=== PATIENT | male | born 1980 | race Caucasian/White ===

== ENCOUNTER 2017-03-26 20:41 | Emergency (ER) | payer SELFPAY ==
--- NOTE | 2017-03-26 20:54 | PDOC ---
Rapid Medical Evaluation Time Seen by Provider: 03/26/17 20:52 Medical Evaluation: 03/26/17 20:52 I have performed a brief in-person evaluation of this patient. The patient presents with a chief complaint of: flank pain, hematuria Pertinent physical exam findings: uncomfortable, no other distress I have ordered the following: cbc, cmp, ua The patient will proceed to the ED for further evaluation. Discharge Disposition - Diagnosis Abdominal pain Qualifiers: Abdominal location: unspecified location Qualified Code(s): R10.9 - Unspecified abdominal pain - Referrals - Patient Instructions - Post Discharge Activity
[2017-03-26 21:01] VITALS: BP 126/85; PULSE 72; TEMP 97.7; BMI 30.7
[2017-03-26 21:11] LABS: BASOPHIL 0.9 % (0-2.0); EOSINOPHIL 1.3 % (0-4.5); MCH 28.7 pg (25.7-33.7); MEAN PLT VOLUME 6.6 fl (7.5-11.1); NEUTROPHILS 59.6 % (42.8-82.8); PLATELET COUNT 279 K/MM3 (134-434); RDW 13.2 % (11.9-15.9); WHITE BLOOD COUNT 9.2 K/mm3 (4.0-10.0)
[2017-03-26 21:40] LABS: ALBUMIN 3.8 g/dl (3.4-5.0); ALK PHOS 108 U/L (45-117); ANION GAP 9 (8-16); BILIRUBIN,TOTAL 0.5 mg/dL (0.2-1.0); CALCIUM 8.7 mg/dL (8.5-10.1); CO2 27 mmol/L (21-32); CREATININE 0.7 mg/dL (0.7-1.3); GLUCOSE,RANDOM 126 mg/dL (74-106); SGPT/ALT 77 U/L (12-78); TOT PROT 7.4 g/dl (6.4-8.2)
[2017-03-26 21:41] LABS: SGOT/AST 32 U/L (15-37)
--- NOTE | 2017-03-26 23:17 | PDOC ---
History of Present Illness - General History Source: Patient Exam Limitations: No Limitations - History of Present Illness Initial Comments: 03/26/17 23:19 37 year old male, with significant past medical history of gastritis, who presents to the emergency room complaining of intermittent left sided flank pain that radiates to the left groin and hematuria x4 days that progressively worsened and became constant today. The patient explains that the pain started on Sunday, 4 days ago, but subsided after taking tylenol. The pain returned today and is deep, sharp, and 10/10 in severity and is no longer relieved by tylenol. The patient reports associated chills, nausea, nonbloody, nonbilious vomiting and lightheadedness. Denies dysuria, urinary frequency. Denies diarrhea , constipation. Denies recent travel. Denies fever. Allergies:NKA The patient does not have a PCP. <Lidia West - Last Filed: 03/26/17 23:19> <Sommer Eaton - Last Filed: 03/27/17 00:02> - General Chief Complaint: Pain Stated Complaint: PAIN Time Seen by Provider: 03/26/17 20:52 Past History <Lidia West - Last Filed: 03/26/17 23:19> - Past Medical History COPD: No - Immunization History Immunization Up to Date: Yes - Suicide/Smoking/Psychosocial Hx Smoking History: Never smoked Have you smoked in the past 12 months: No Information on smoking cessation initiated: No Hx Alcohol Use: No Drug/Substance Use Hx: No <Sommer Eaton - Last Filed: 03/27/17 00:02> - Past Medical History Allergies/Adverse Reactions: Allergies Allergy/AdvReac Type Severity Reaction Status Date / Time No Known Allergies Allergy Verified 03/26/17 22:22 Home Medications: Ambulatory Orders Ketorolac Tromethamine [Toradol] 10 mg PO Q6H PRN #12 tablet 03/26/17 Tamsulosin HCl [Flomax] 0.4 mg PO DAILY #7 capsule 03/26/17 Review of Systems - Review of Systems Able to Perform ROS?: Yes Comments:: 03/26/17 23:19 CONSTITUTIONAL: Absent: fever, no chills, no fatigue EYES: Absent: visual changes ENT: Absent: ear pain, no sore throat CARDIOVASCULAR: Absent: chest pain, no palpitations RESPIRATORY: Absent: cough, no SOB GI: Present: nausea, vomiting. Absent: no constipation, no diarrhea GENITOURINARY: Present: left flank pain that radiates to the left groin, hematuria. Absent: dysuria, no frequency MUSCULOSKELETAL: Absent: no arthralgia, no myalgia SKIN: Absent: rash NEURO: Absent: headache <JennaLidia - Last Filed: 03/26/17 23:19> *Physical Exam - Vital Signs Last Vital Signs Temp Pulse Resp BP Pulse Ox 97.7 F 72 14 126/85 100 03/26/17 20:59 03/26/17 20:59 03/26/17 20:59 03/26/17 20:59 03/26/17 20:59 - Physical Exam Comments: 03/26/17 23:19 GENERAL: Well-appearing, well-nourished. No apparent distress. HEENT: Normocephalic, atraumatic. PERRL, EOM intact. CARDIOVASCULAR: Normal S1, S2. Regular rate and rhythm. PULMONARY: Clear to auscultation bilaterally. ABDOMEN: Soft, non-distended, non-tender. EXTREMITIES: Normal ROM in all four extremities. No gross deformities. BACK: +left CVA tenderness SKIN: Warm, dry. No rash <Lidia West - Last Filed: 03/26/17 23:19> - Vital Signs Last Vital Signs Temp Pulse Resp BP Pulse Ox 97.7 F 72 14 126/85 100 03/26/17 20:59 03/26/17 20:59 03/26/17 20:59 03/26/17 20:59 03/26/17 20:59 <Sommer Eaton - Last Filed: 03/27/17 00:02> ED Treatment Course - LABORATORY CBC & Chemistry Diagram: 03/26/17 21:00 03/26/17 21:00 - ADDITIONAL ORDERS Additional order review: Laboratory Results 03/26/17 21:00 Sodium 139 Potassium 3.8 Chloride 103 Carbon Dioxide 27 Anion Gap 9 BUN 14 Creatinine 0.7 Creat Clearance w eGFR > 60 Random Glucose 126 H Calcium 8.7 Total Bilirubin 0.5 AST 32 ALT 77 Alkaline Phosphatase 108 Total Protein 7.4 Albumin 3.8 03/26/17 21:00 RBC 5.00 MCV 87.0 MCHC 33.0 RDW 13.2 MPV 6.6 L Neutrophils % 59.6 Lymphocytes % 29.4 Monocytes % 8.8 Eosinophils % 1.3 Basophils % 0.9 <Lidia West - Last Filed: 03/26/17 23:19> - LABORATORY CBC & Chemistry Diagram: 03/26/17 21:00 03/26/17 21:00 - ADDITIONAL ORDERS Additional order review: Laboratory Results 03/26/17 21:00 Sodium 139 Potassium 3.8 Chloride 103 Carbon Dioxide 27 Anion Gap 9 BUN 14 Creatinine 0.7 Creat Clearance w eGFR > 60 Random Glucose 126 H Calcium 8.7 Total Bilirubin 0.5 AST 32 ALT 77 Alkaline Phosphatase 108 Total Protein 7.4 Albumin 3.8 03/26/17 21:00 RBC 5.00 MCV 87.0 MCHC 33.0 RDW 13.2 MPV 6.6 L Neutrophils % 59.6 Lymphocytes % 29.4 Monocytes % 8.8 Eosinophils % 1.3 Basophils % 0.9 - RADIOLOGY Radiology Studies Ordered: Category Date Time Status SPIRAL- RENAL-STONE CT [CT] Stat CT Scan 03/26/17 21:51 Completed <Sommer Eaton - Last Filed: 03/27/17 00:02> *DC/Admit/Observation/Transfer - Attestations Scribe Attestion: 03/26/17 23:19 Documentation prepared by BLAIR Santana, acting as medical facilities section director for Sommer Eaton MD <Lidia West - Last Filed: 03/26/17 23:19> <Sommer Eaton - Last Filed: 03/27/17 00:02> Diagnosis at time of Disposition: Kidney calculi - Discharge Dispostion Condition at time of disposition: Stable - Prescriptions Prescriptions: Ketorolac Tromethamine [Toradol] 10 mg PO Q6H PRN #12 tablet PRN Reason: Pain Level 6-10 Tamsulosin HCl [Flomax] 0.4 mg PO DAILY #7 capsule - Referrals Referrals: Angel Helm MD [Staff Physician] - - Patient Instructions Printed Discharge Instructions: DI for Kidney Stones Additional Instructions: 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
[2017-03-26] MEDS ORDERED: TAMSULOSIN HCL 0.4 MG CAP.ER.24H (FP) PO ONE (23:21)
[2017-03-26] MEDS ORDERED: KETOROLAC TROMETHAMINE 60 MG/2 ML VIAL IM ONE (23:22)
[2017-03-26] MEDS ORDERED: TAMSULOSIN HCL 0.4 MG CAP.ER.24H (FP) ONE (23:37)
[2017-03-26] MEDS ORDERED: KETOROLAC TROMETHAMINE 60 MG/2 ML VIAL ONE (23:37)
[2017-03-27 00:07] LABS: URINE APPEARANCE CLEAR; URINE BILIRUBIN NEGATIVE (NEGATIVE); URINE BLOOD 3+ (NEGATIVE); URINE COLOR LTYELLOW; URINE GLUCOSE (UA) NEGATIVE (NEGATIVE); URINE KETONE NEGATIVE (NEGATIVE); URINE NITRITE NEGATIVE (NEGATIVE); URINE PROTEIN NEGATIVE (NEGATIVE); URINE UROBILINOGEN NEGATIVE mg/dL (0.2-1.0)
--- NOTE | 2017-03-27 00:32 | PDOC ---
*Physical Exam - Vital Signs Last Vital Signs Temp Pulse Resp BP Pulse Ox 97.7 F 72 14 126/85 100 03/26/17 20:59 03/26/17 20:59 03/26/17 20:59 03/26/17 20:59 03/26/17 20:59 ED Treatment Course - LABORATORY CBC & Chemistry Diagram: 03/26/17 21:00 03/26/17 21:00 - ADDITIONAL ORDERS Additional order review: Laboratory Results 03/26/17 03/26/17 23:00 21:00 Sodium 139 Potassium 3.8 Chloride 103 Carbon Dioxide 27 Anion Gap 9 BUN 14 Creatinine 0.7 Creat Clearance w eGFR > 60 Random Glucose 126 H Calcium 8.7 Total Bilirubin 0.5 AST 32 ALT 77 Alkaline Phosphatase 108 Total Protein 7.4 Albumin 3.8 Urine Color Ltyellow Urine Appearance Clear Urine pH 8.0 Ur Specific [place] 1.005 Urine Protein Negative Urine Glucose (UA) Negative Urine Ketones Negative Urine Blood 3+ H Urine Nitrite Negative Urine Bilirubin Negative Urine Urobilinogen Negative 03/26/17 21:00 RBC 5.00 MCV 87.0 MCHC 33.0 RDW 13.2 MPV 6.6 L Neutrophils % 59.6 Lymphocytes % 29.4 Monocytes % 8.8 Eosinophils % 1.3 Basophils % 0.9 - RADIOLOGY Radiology Studies Ordered: Category Date Time Status SPIRAL- RENAL-STONE CT [CT] Stat CT Scan 03/26/17 21:51 Completed - Medications Given in the ED: ED Medications Discontinued Medications Generic Name Dose Route Start Last Admin Trade Name Freq PRN Reason Stop Dose Admin Ketorolac Tromethamine 60 mg 03/26/17 23:22 03/26/17 23:46 Toradol Injection - IM 03/26/17 23:23 60 mg ONCE ONE Administration Tamsulosin HCl 0.4 mg 03/26/17 23:21 03/26/17 23:46 Flomax - PO 03/26/17 23:22 0.4 mg ONCE ONE Administration Medical Decision Making - Medical Decision Making 03/27/17 00:29 ct scan revealed a 4 x 2 mm stone in left ureter,mild hydronephrosis UA +3 blood but no sign of infection plan pt to take flomax,toradol as prescribed and follow up with urology *DC/Admit/Observation/Transfer Diagnosis at time of Disposition: Kidney calculi - Discharge Dispostion Disposition: HOME Condition at time of disposition: Stable - Prescriptions Prescriptions: Ketorolac Tromethamine [Toradol] 10 mg PO Q6H PRN #12 tablet PRN Reason: Pain Level 6-10 Tamsulosin HCl [Flomax] 0.4 mg PO DAILY #7 capsule - Referrals Referrals: Angel Helm MD [Staff Physician] - - Patient Instructions Printed Discharge Instructions: DI for Kidney Stones Additional Instructions: 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
[2017-03-27 00:35] LABS: URINE BACTERIA RARE /hpf (NONE SEEN); URINE RBC 6 /hpf (0-3); URINE WBC 2 /hpf (3-5)
[2017-03-27 10:41] LABS: URINE LEUK ESTERASE Negative (NEGATIVE)
== END 2017-03-27 00:40 | disposition home or self-care (01) ==
LOC: JER 20:41
PROC: 3E0233Z Introduction of Anti-inflammatory into Muscle, Percutaneous Approach (ICD-10-PCS; principal; 2017-03-26)
DX: N13.2 Hydronephrosis with renal and ureteral calculous obstruction (principal)
CPT/HCPCS: 36415; 74176; 80053; 81003; 81015; 85025; 99283-25

== ENCOUNTER 2018-06-08 23:38 | Emergency (ER) | payer SELFPAY ==
[2018-06-09 00:01] VITALS: BMI 31.9
--- NOTE | 2018-06-09 00:28 | PDOC ---
Attending Attestation - HPI HPI: This patient is a 38 year old male with a PMHx of gastritis, who presents with 2 days of epigastric/RUQ pain radiating to right side/back. Patient states pain is constant, worse after meals and with movement. Patient states he has never felt like this before.Patient also endorses vomit (nbnb), nonbloody diarrhea, and subjective fevers. No other complaints. <Kasandra Dean - Last Filed: 06/09/18 01:48> - Resident Resident Name: Bob Andres - ED Attending Attestation I have performed the following: I have examined & evaluated the patient, The case was reviewed & discussed with the resident, I agree w/resident's findings & plan, Exceptions are as noted - Physicial Exam PE: 06/09/18 01:16 GENERAL: The patient is in no acute distress. HEAD: Normal EYES: PERRLA, EOMI, sclera anicteric, conjunctiva clear. ENT: Ears normal, nares patent, oropharynx clear without exudates. Moist mucous membranes. NECK: Normal range of motion, supple without lymphadenopathy, JVD, or masses. LUNGS: Breath sounds equal, clear to auscultation bilaterally. No wheezes, and no crackles. HEART:Regular rate and rhythm, normal S1 and S2 without murmur, rub or gallop. ABDOMEN: Soft, RUQ, epigastric tenderness to palpation, voluntary guarding EXTREMITIES: Normal range of motion, no edema. NEUROLOGICAL: Cranial nerves II through XII grossly intact. Normal speech. No focal neurological deficits. SKIN: Warm, Dry, normal turgor, no rashes or lesions noted. - Medical Decision Making 06/09/18 01:17 38 yo M RUQ and epigastric tenderness to palpation Oral tem 99.9 (suspect pt has fever) Labs pending US pending 06/09/18 02:23 Laboratory Tests 06/09/18 06/09/18 01:23 01:23 WBC 8.3 Hgb 15.9 Hct 45.8 Plt Count 277 BUN 20 H Creatinine 0.8 Total Bilirubin 0.5 AST 74 H ALT 127 H Lipase 129 US demonstrates gallstones No PCCF, no gallbladder wall thickening No elevated WBC Will ask pt to modify diet LOW THRESHOLD FOR PATIENT RETURN - fevers, increased pain, nausea, vomiting Pt asked to follow up with Dr Hager in the office for surgical planning <Halie Ortiz - Last Filed: 06/09/18 02:25>
[2018-06-09] MEDS ORDERED: SODIUM CHLORIDE 0.9% 500 ML INFUS.BAG IV ONE (00:31)
[2018-06-09] MEDS ORDERED: ACETAMINOPHEN 1000 MG/100 ML VIAL (NON FORMULARY) IVPB ONE (00:31)
[2018-06-09] MEDS ORDERED: ONDANSETRON 4 MG/2 ML VIAL IVPUSH ONE (00:31)
--- NOTE | 2018-06-09 00:37 | PDOC ---
History of Present Illness - General Chief Complaint: Diarrhea Stated Complaint: STOMACHE PAIN Time Seen by Provider: 06/09/18 00:27 - History of Present Illness Initial Comments: The patient is a 38M w/ a history of gastritis who presents for evaluation of 2d of epigastric/RUQ. The pain is constant, worse after meals, radiates to his right flank and back, associated w/ NBNB vomiting and NB vomiting. He endorses subjective fevers at home. Denies vision changes, chest pain, SOB, changes in sensation or strength. Denies pain like this before and states this pain is different from his gastritis pain. PCP: N/A 06/09/18 00:31 Past History - Past Medical History Allergies/Adverse Reactions: Allergies Allergy/AdvReac Type Severity Reaction Status Date / Time No Known Allergies Allergy Verified 03/26/17 22:22 Home Medications: Ambulatory Orders Ketorolac Tromethamine [Toradol] 10 mg PO Q6H PRN #12 tablet 03/26/17 Tamsulosin HCl [Flomax] 0.4 mg PO DAILY #7 capsule 03/26/17 COPD: No - Immunization History Immunization Up to Date: Yes - Suicide/Smoking/Psychosocial Hx Smoking History: Never smoked Have you smoked in the past 12 months: No Information on smoking cessation initiated: No Hx Alcohol Use: No Drug/Substance Use Hx: No Review of Systems - Review of Systems Able to Perform ROS?: Yes Comments:: GENERAL/CONSTITUTIONAL: No fever or chills. No weakness HEAD, EYES, EARS, NOSE AND THROAT: No change in vision. No ear pain or discharge. No sore throat CARDIOVASCULAR: No chest pain or shortness of breath RESPIRATORY: Denies cough, hemoptysis GASTROINTESTINAL: per HPI GENITOURINARY: No dysuria, frequency, or change in urination MUSCULOSKELETAL: No joint or muscle swelling or pain. No neck or back pain SKIN: No rash NEUROLOGIC: No headache, vertigo, loss of consciousness, or change in strength/ sensation ENDOCRINE: No increased thirst. No abnormal weight change HEMATOLOGIC/LYMPHATIC: No anemia, easy bleeding, or history of blood clots ALLERGIC/IMMUNOLOGIC: No hives or skin allergy 06/09/18 00:40 Is the patient limited Korean proficient: No *Physical Exam - Vital Signs Last Vital Signs Temp Pulse Resp BP Pulse Ox 99.9 F H 119 H 18 113/80 96 06/08/18 23:59 06/08/18 23:59 06/08/18 23:59 06/08/18 23:59 06/08/18 23:59 - Physical Exam Comments: GENERAL: Awake, alert, and fully oriented, in no acute distress HEAD: No signs of trauma, normocephalic, atraumatic EYES: PERRLA, EOMI, sclera anicteric, conjunctiva clear ENT: Hearing grossly normal, nares patent, oropharynx clear without exudates. Moist mucosa LUNGS: No distress, speaks full sentences, clear to auscultation bilaterally HEART: Regular rate and rhythm, normal S1 and S2, no murmurs appreciated, peripheral pulses normal and equal bilaterally ABDOMEN: Soft, epigastric/RUQ TTP w/o rebound or guarding, +Garcia's, normoactive bowel sounds EXTREMITIES : Normal inspection, Normal range of motion, no edema. No clubbing or cyanosis NEUROLOGICAL: Cranial nerves II through XII grossly intact. Normal speech, no focal sensorimotor deficits SKIN: Warm, Dry 06/09/18 00:41 Moderate Sedation - Procedure Monitoring Vital Signs: Procedure Monitoring Vital Signs Temperature 99.9 F H 06/08/18 23:59 Pulse Rate 119 H 06/08/18 23:59 Respiratory Rate 18 06/08/18 23:59 Blood Pressure 113/80 06/08/18 23:59 O2 Sat by Pulse Oximetry (%) 96 06/08/18 23:59 ED Treatment Course - LABORATORY CBC & Chemistry Diagram: 06/09/18 01:23 06/09/18 01:23 Medical Decision Making - Medical Decision Making The patient is a 38M w/ a history of gastritis who presents for evaluation of 2d of RUQ/epigastric abdominal pain concerning for cholecystitis vs acute gastritis vs pancreatitis ED Course CMP, CBC, Lipase, UA, UCx RUQ US Ofirmev, Zofran, IVF 06/09/18 00:42 U/S on my evaluation, pt w/ stones in the gallbladder and CBD 0.44cm 06/09/18 01:17 Rectal temp 99.4 06/09/18 01:28 *DC/Admit/Observation/Transfer Diagnosis at time of Disposition: Abdominal pain Qualifiers: Abdominal location: right upper quadrant Qualified Code(s): R10.11 - Right upper quadrant pain Cholelithiasis Qualifiers: Cholelithiasis location: gallbladder Cholecystitis presence: without cholecystitis Biliary obstruction: without biliary obstruction Qualified Code(s) : K80.20 - Calculus of gallbladder without cholecystitis without obstruction - Discharge Dispostion Condition at time of disposition: Stable - Referrals Referrals: Chapo Hager MD [Staff Physician] - [facility] [place] [Provider Group] - Patient Instructions Printed Discharge Instructions: DI for Gallstones Additional Instructions: You were seen in the Emergency Department for abdominal pain. You were found to have gallstones without evidence of gall bladder inflammation. Review the handout provided at discharge. Follow up with General Surgery (Dr. Hager). Return to the Emergency Department if you develop worsening pain, inability to tolerate liquids, fever, or any new/concerning symptoms. - Post Discharge Activity
[2018-06-09] MEDS ORDERED: ACETAMINOPHEN INJECTION 100 ML IVPB ONE (01:04)
[2018-06-09] MEDS ORDERED: ONDANSETRON 4 MG/2 ML VIAL ONE (01:05)
[2018-06-09 01:33] LABS: BASO % 0.4 % (0-2.0); EOS % 0.1 % (0-4.5); HEMATOCRIT 45.8 % (35.4-49); HEMOGLOBIN 15.9 GM/dL (11.7-16.9); LYMPH % 17.8 % (8-40); MCHC 34.8 g/dl (32.0-35.9); MEAN CELL VOLUME 89.1 fl (80-96); MEAN PLT VOLUME 6.5 fl (7.5-11.1); NEUT % 73.7 % (42.8-82.8); PLATELET COUNT 277 K/MM3 (134-434); RBC 5.15 M/mm3 (4.00-5.60); RDW 13.3 % (11.9-15.9); WHITE BLOOD COUNT 8.3 K/mm3 (4.0-10.0)
[2018-06-09 01:56] LABS: ALBUMIN 3.9 g/dl (3.4-5.0); ALK PHOS 104 U/L (45-117); ANION GAP 6 MMOL/L (8-16); BILIRUBIN,TOTAL 0.5 mg/dL (0.2-1); BLOOD UREA NITROGEN 20 mg/dL (7-18); CALCIUM 8.1 mg/dL (8.5-10.1); CHLORIDE 102 mmol/L (98-107); CO2 29 mmol/L (21-32); CREATININE 0.8 mg/dL (0.55-1.3); GLUCOSE,RANDOM 113 mg/dL (74-106); LIPASE 129 U/L (73-393); POTASSIUM 3.8 mmol/L (3.5-5.1); SGOT/AST 74 U/L (15-37); SGPT/ALT 127 U/L (13-61); SODIUM 137 mmol/L (136-145); TOT PROT 7.8 g/dl (6.4-8.2)
[2018-06-09 02:42] VITALS: BP 100/58; PULSE 79; TEMP 99.1
== END 2018-06-09 02:42 | disposition home or self-care (01) ==
LOC: JER 23:38
PROC: 3E033GC Introduction of Other Therapeutic Substance into Peripheral Vein, Percutaneous Approach (ICD-10-PCS; principal; 2018-06-08)
PROC: 3E033NZ Introduction of Analgesics, Hypnotics, Sedatives into Peripheral Vein, Percutaneous Approach (ICD-10-PCS; 2018-06-08)
DX: K80.20 Calculus of gallbladder without cholecystitis without obstruction (principal)
CPT/HCPCS: 36415; 71045-TC-FY; 76705-TC; 80053; 83690; 85025; 99283-25; J0131